=== PATIENT | male | born 1985 | race African-American/Black ===

== ENCOUNTER 2019-08-11 06:37 | Emergency (ER) | payer OTHER ==
[~2019-08-11] VITALS: Ht 185.4 cm; Wt 89.0 kg
[2019-08-11] MEDS ORDERED: NS 1,000 ML IV ONE (07:15)
[2019-08-11 07:27] LABS: BASO % 1.1 % (0.0-1.0); EOS # 0.1 10^3/uL (0.0-0.5); EOS % 2.5 % (0.0-3.0); HEMATOCRIT 47.2 % (42.0-52.0); HEMOGLOBIN 15.1 g/dl (13.5-17.5); LYMPH # 1.2 10^3/uL (1.5-5.0); LYMPH % 34.6 % (24.0-44.0); MEAN CORPUSCULAR HEMOGLOBIN 27.1 pg (27.0-33.0); MEAN CORPUSCULAR VOLUME 84.6 fl (80.0-96.0); MONO # 0.4 10^3/uL (0.0-0.8); MONO % 12.5 % (0.0-5.0); NEUTROPHILS # 1.7 10^3/uL (1.5-8.5); PLATELET COUNT, AUTOMATED 244 10^3/uL (150-450); RED BLOOD COUNT 5.58 10^6/uL (4.30-6.10); WHITE BLOOD COUNT 3.5 10^3/uL (4.0-10.0)
[2019-08-11] MEDS ORDERED: ONDANSETRON 4MG/2ML VIAL IV ONE (07:30)
[2019-08-11] MEDS ORDERED: methylPREDNISolone INJ 125 MG/2 ML VIAL (J2930) IV ONE (07:45)
[2019-08-11 07:50] LABS: BILIRUBIN,DIRECT 0.2 MG/DL (0.0-0.2); BILIRUBIN,TOTAL 0.7 MG/DL (0.2-1.0); TOTAL PROTEIN 7.6 GM/DL (6.4-8.2)
--- NOTE | 2019-08-11 08:03 | REP ---
Clinical: History of Crohns disease with abdominal pain. Technique: Upright view of the chest with supine and upright views of the abdomen and pelvis. Findings: Frontal upright view of the chest demonstrates no acute cardiopulmonary process or free air below the diaphragm to suspect pneumoperitoneum. Supine and upright views of the abdomen and pelvis demonstrate nonspecific bowel gas pattern without obstruction or perforation. No organomegaly. No abnormal calcifications. Skeletal structures normal for age. Impression: Nonspecific bowel gas pattern. Electronically Signed by Jose De Jesus Fry MD 08/11/2019 07:55 A
[2019-08-11] MEDS ORDERED: PRED20TA PO (08:06)
[2019-08-11] MEDS ORDERED: ONDA4TAB6 PO (08:06)
[2019-08-11] MEDS ORDERED: MIRA3350 PO (08:06)
[2019-08-11 08:32] VITALS: BP 119/74
== END 2019-08-11 08:39 | disposition home or self-care (01) ==
LOC: M ED 06:37
DX: K50.90 Crohn's disease, unspecified, without complications (principal); K59.00 Constipation, unspecified; R10.11 Right upper quadrant pain; R10.31 Right lower quadrant pain
CPT/HCPCS: 74021; 80047; 80076; 83605; 83690; 85025; 96374; 96375; 99284; J2405; J2930